=== PATIENT | male | born 1945 ===

== ENCOUNTER 2022-02-16 09:32 | Observation (INO) ==
[2022-02-16] MEDS ORDERED: ONDANSETRON 4 MG/2 ML VIAL IV STA (10:44)
[2022-02-16] MEDS ORDERED: SODIUM CHLORIDE 0.9% 1,000 ML IV STA (10:44)
[2022-02-16] MEDS ORDERED: PANTOPRAZOLE 40 MG VIAL IV STA (10:44)
[2022-02-16 10:59] LABS: Basophils # 0.2 10*3/uL (0.0-0.2); Basophils % 1.4 % (0.0-0.8); Eosinophils # 0.3 10*3/uL (0.0-0.87); Eosinophils % 2.2 % (0.00-10.9); Hematocrit 40.1 VOL% (42.0-52.0); Hemoglobin 12.5 GM/DL (14.0-18.0); Immature Granulocytes % 5.2 %; Immature Granulocytes Absolute 0.59 #; Lymphocytes # 2.1 10*3/uL (1.4-4.0); Mean Corpuscular HGB Conc 31.2 GM/DL (32-36); Mean Corpuscular Volume 103.4 FL (87-102); Monocytes # 1.1 10*3/uL (0.11-0.8); Monocytes % 9.4 % (1.7-12.7); NRBC # 0.04 10*3/uL; Neutrophils % 62.8 % (38.7-73.9); Platelet Count 102 T/CUMM (130-400); Red Blood Count 3.88 MC/CUMM (3.8-5.5); Red Cell Distribution Width 17.7 % (9.3-17.3); White Blood Count 11.3 T/CUMM (4-12)
[2022-02-16 11:00] LABS: INR 1.5; Partial Thromboplastin Time 31.6 SECS (23.8-32.1)
[2022-02-16 11:16] LABS: Albumin 2.6 G/DL (3.4-5.0); Calcium 9.5 MG/DL (8.5-10.1); Osmolality,Calculated 279.7 MOS/KG (273-304); Potassium 5.3 MMOL/L (3.5-5.1); Total Protein 6.1 G/DL (6.4-8.2)
[2022-02-16 11:28] LABS: Anisocytosis 1+; Band Neutrophils 13 % (0-10); Eosinophils 2 % (0-10); Lymphocytes 17 % (20-55); Macrocytosis 1+; Nucleated Red Blood Cells 2 (0-5); Platelet Estimate Adequate; Smudge Cells 1+; Stomatocytes Few; Total Cells Counted 100
[2022-02-16] MEDS ORDERED: ONDANSETRON 4 MG/2 ML VIAL IV PRN (13:30)
[2022-02-16] MEDS ORDERED: GLUCAGON 1 MG VIAL IM PRN (13:30)
[2022-02-16] MEDS ORDERED: MORPHINE 2 MG/1 ML SYRINGE IV PRN (13:30)
[2022-02-16] MEDS ORDERED: DEXTROSE 10% 250 ML BAG IV PRN (13:30)
[2022-02-16] MEDS: ENOXAPARIN 40 MG/0.4 ML SYRINGE SUBCUT SCH (15:17)
[2022-02-16] MEDS: SODIUM CHLORIDE 0.9% 1,000 ML IV SCH (15:18)
[2022-02-16] MEDS ORDERED: ZALEPLON 5 MG CAPSULE PO PRN (20:43)
[2022-02-16] MEDS: PANTOPRAZOLE 40 MG TABLET PO SCH (20:49)
[2022-02-17] MEDS: SODIUM CHLORIDE 0.9% 1,000 ML IV SCH (03:06)
[2022-02-17 04:42] LABS: Basophils # 0.2 10*3/uL (0.0-0.2); Basophils % 1.5 % (0.0-0.8); Eosinophils # 0.3 10*3/uL (0.0-0.87); Eosinophils % 2.2 % (0.00-10.9); Hematocrit 36.8 VOL% (42.0-52.0); Hemoglobin 11.5 GM/DL (14.0-18.0); Immature Granulocytes % 6.7 %; Immature Granulocytes Absolute 0.78 #; Lymphocytes # 2.1 10*3/uL (1.4-4.0); Lymphocytes % 17.7 % (21.2-54.2); Mean Corpuscular HGB Conc 31.3 GM/DL (32-36); Mean Corpuscular Volume 102.2 FL (87-102); Mean Platelet Volume 11.7 FL (9.6-12.0); Monocytes # 1.4 10*3/uL (0.11-0.8); Monocytes % 11.7 % (1.7-12.7); NRBC # 0.09 10*3/uL; Neutrophils % 60.2 % (38.7-73.9); Platelet Count 89 T/CUMM (130-400); Red Cell Distribution Width 17.5 % (9.3-17.3); White Blood Count 11.6 T/CUMM (4-12)
[2022-02-17 05:08] LABS: Band Neutrophils 3 % (0-10); Eosinophils 3 % (0-10); Lymphocytes 15 % (20-55); Metamyelocytes 2 %; Myelocytes 1 %; Total Cells Counted 100
[2022-02-17 05:09] LABS: Hypochromia Slight; Macrocytosis 1+; Polychromasia Slight
[2022-02-17 05:17] LABS: Albumin 2.3 G/DL (3.4-5.0); Bilirubin,Total 3.6 MG/DL (0.20-1.00); Calcium 8.8 MG/DL (8.5-10.1); Osmolality,Calculated 282.5 MOS/KG (273-304); Potassium 5.3 MMOL/L (3.5-5.1); Total Protein 5.6 G/DL (6.4-8.2)
[2022-02-17] MEDS ORDERED: PANTOPRAZOLE 40 MG TABLET PO SCH (09:00)
[2022-02-17] MEDS: PANTOPRAZOLE 40 MG TABLET PO SCH (10:18)
[2022-02-17] MEDS: ENOXAPARIN 40 MG/0.4 ML SYRINGE SUBCUT SCH (17:00)
[2022-02-17 17:02] VITALS: BP 103/69
== END 2022-02-17 17:53 | disposition hospice, home (50) ==
LOC: N.TELES 09:32 → N.ED 09:32 → SUATTDRO 13:30 → N.TELES 16:19
PROVIDERS: ADMIT Internal Medicine; ATTEND Internal Medicine